=== PATIENT | female | born 1990 ===

== ENCOUNTER 2020-06-05 13:24 | Emergency (ER) | payer OTHER ==
[~2020-06-05] VITALS: Ht 160 cm; Wt 81.6 kg
[~2020-06-05 13:24] MED LIST: EXTRA-VIRT PLU1 EACH; GLIBURIDE PO; PNEU16DI2
[2020-06-05] MEDS ORDERED: FLUCONAZOLE150 MG PO (19:45)
== END 2020-06-05 19:51 | disposition home or self-care (01) ==
LOC: ER 13:24
DX: N39.0 Urinary tract infection, site not specified (principal); A60.04 Herpesviral vulvovaginitis; B37.3 Candidiasis of vulva and vagina; Z03.818 Encounter for observation for suspected exposure to other biological agents ruled out